=== PATIENT | female | born 1995 | race Caucasian/White ===

== ENCOUNTER 2021-05-27 17:34 | Observation (INO) | payer OTHER ==
[2021-05-27 18:19] LABS: Appearance CLEAR (CLEAR); Bilirubin NEGATIVE (NEGATIVE); Blood NEGATIVE Ery/ul (0-5); Glucose 50 mg/dL (NEGATIVE); Ketones NEGATIVE (NEGATIVE); Leukocyte Esterase NEGATIVE (NEGATIVE); Mucus SLIGHT /HPF (NEGATIVE); Nitrite NEGATIVE (NEGATIVE); Protein,Urine Dip 30 (Negative); Specific Gravity 1.024 (1.005-1.025); Urobilinogen 4 mg/dL (0-1)
[2021-05-27 18:31] VITALS: PULSE 99; O2SAT 99
[2021-05-27 18:33] LABS: Amphetamine,Urine NEGATIVE (NEGATIVE); Barbiturate,Urine NEGATIVE (NEGATIVE); Benzodiazepine,Urine NEGATIVE (NEGATIVE); Cocaine,Urine NEGATIVE (NEGATIVE); Methadone,Urine NEGATIVE (NEGATIVE); Opiate,Urine NEGATIVE (NEGATIVE); PCP,Urine NEGATIVE (NEGATIVE); THC,Urine NEGATIVE (NEGATIVE)
== END 2021-05-27 19:05 | disposition home or self-care (01) ==
LOC: OB 17:34
PROVIDERS: ADMIT Obstetrics & Gynecology; ATTEND Obstetrics & Gynecology
DX: Z34.03 Encounter for supervision of normal first pregnancy, third trimester (principal); Z3A.34 34 weeks gestation of pregnancy
CPT/HCPCS: 80307; 81001; G0378

== ENCOUNTER 2021-06-21 06:42 | Inpatient (IN) | payer OTHER ==
[2021-06-21 07:49] LABS: Absolute Neutrophil Ct (ANC) 5.64 (1.4-6.9); BASOPHIL % 0.3 % (0.0-0.4); Basophil (Absolute #) 0.02 (0-0.4); Eosinophil % 0.9 % (0.00-5.0); Eosinophil (Absolute #) 0.07 (0-0.5); Hematocrit 37.3 % (35-47); Hemoglobin 11.6 gm/dl (12.0-16.0); Lymphocyte (Absolute #) 1.68 (1.0-4.6); Mean Cell Volume 90.5 fl (78-100); Mean Corpuscular Hemoglobin 28.2 pg (26-32); Mean Corpuscular Hgb Concent. 31.1 g/dl (32-36); Mean Platelet Volume 10.8 fl (7.5-11.0); Monocyte (Absolute #) 0.58 (0.0-1.3); Monocytes % 7.3 % (0.0-12.0); Neutrophil % 70.5 % (36.0-66.0); Platelet Count 189 K/mm3 (150-450); Red Blood Count 4.12 M/mm3 (4.1-5.4); Red Cell Distribution Width 14.9 % (11.5-14.0)
[2021-06-21 07:53] LABS: ALBUMIN 3.5 g/dL (3.5-5.0); ALKALINE PHOSPHATASE 203 U/L (38-126); ANION GAP 10.8 MEQ/L (5-15); BLOOD UREA NITROGEN 8 mg/dL (7-17); CHLORIDE 106 mmol/L (98-107); Carbon Dioxide 23 mmol/L (22-30); Creatinine 1 0.57 mg/dL (0.52-1.04); EST GLOMERULAR FILTRATION RATE > 60.0 ML/MIN; Glucose 95 mg/dL (74-106); Potassium 4.1 mmol/L (3.5-5.1); SGOT/AST 46 U/L (14-36); SGPT/ALT 44 U/L (0-35); SODIUM 135 mmol/L (137-145); Total Protein 6.6 g/dL (6.3-8.2)
[2021-06-21 07:54] LABS: Appearance SLIGHTLY CLOUDY (CLEAR); Bacteria RARE /HPF (NEGATIVE); Bilirubin NEGATIVE (NEGATIVE); Blood NEGATIVE Ery/ul (0-5); Glucose NEGATIVE (NEGATIVE); Ketones NEGATIVE (NEGATIVE); Leukocyte Esterase NEGATIVE (NEGATIVE); Mucus SLIGHT /HPF (NEGATIVE); Nitrite NEGATIVE (NEGATIVE); Protein,Urine Dip 30 (Negative); Urobilinogen 4 mg/dL (0-1)
[2021-06-21 08:11] LABS: INFLUENZA A NEGATIVE (NEGATIVE); INFLUENZA B NEGATIVE (NEGATIVE); RESPIRATORY SYNCTIAL VIRUS NEGATIVE (Negative)
[2021-06-21] MEDS ORDERED: Sodium Chloride 0.9% 1000 ML 1,000 ML ONE (08:15)
[2021-06-21 08:19] LABS: SARS-CoV-2 Xpert Express POSITIVE (NEGATIVE)
[2021-06-21 08:26] LABS: BAND 5 % (0.0-2.0); Lymphocytes 18 % (24-44); Monocyte 7 % (0.0-12.0); Neutrophils 70 % (36.0-66.0); Nucleated Red Blood Cell 1 %; Total Cells Counted 100
[2021-06-21 08:27] LABS: Platelet Estimate NORMAL (NORMAL)
[2021-06-21 08:28] LABS: ANISOCYTOSIS 1+; Polychromasia 1+
--- NOTE | 2021-06-21 09:42 | ERPHSYRPT ---
- History of Present Illness Time Seen by Provider: 06/21/21 08:32 Source: patient Exam Limitations: no limitations Patient Subjective Stated Complaint: Pt states that she began itching on Thursday on the bottoms of her feet but it has progressed to the rest of her body, pt is 38 wks and 2 days gestation Triage Nursing Assessment: Pt was brought to the ER by her boyfriend (covid positive), tachycardic, denies pain, pulses normal, no difficulties with , doesn't appear to be in any distress Physician History: 26 years old 1 para 0 at around 38 weeks gestation presented in the ER with 3 days history of itching all over especially on the hands and feet with progressive worsening without yellowish discoloration of eyes/skin. Patient denies any abdominal cramping, although does report passing a mucous plug last night but no leaking of fluid. No fever chills reported. Does have positive contact with known COVID-19 and has minimal cough but denies any fever chills or shortness of breath. Patient called her OB and was advised to be reported in the ER and had baseline labs including bile acid checked. Timing/Duration: day(s), gradual onset, worse Severity of Pain-Max: none Severity of Pain-Current: none Sexual intercourse history: non-contributory Modifying Factors: Improves With: nothing Associated Symptoms: denies symptoms Allergies/Adverse Reactions: sulfamethoxazole [From Bactrim] Allergy (Verified 06/21/21 07:08) trimethoprim [From Bactrim] Allergy (Verified 06/21/21 07:08) Home Medications: Pnv No.95/Ferrous Fum/Folic AC [ Caplet] 1 each PO DAILY 06/21/21 [Hist ory] Travel Risk - International Travel Have you traveled outside of the country in past 3 weeks: No - Coronavirus Screening Are you exhibiting any of the following symptoms?: No Close contact with a COVID-19 positive Pt in past 14-21 Days: Yes - Vaccine Status Have you recieved a Covid-19 vaccination: No - Review of Systems Constitutional: No Symptoms Eyes: No Symptoms Ears, Nose, & Throat: No Symptoms Respiratory: Cough Cardiac: No Symptoms Abdominal/Gastrointestinal: No Symptoms Genitourinary Symptoms: No Symptoms Musculoskeletal: No Symptoms Skin: Pruritis Neurological: No Symptoms Psychological: No Symptoms Endocrine: No Symptoms Hematologic/Lymphatic: No Symptoms Immunological/Allergic: No Symptoms - Past Medical History Pertinent Past Medical History: No - Past Surgical History Past Surgical History: No - Social History Smoking Status: Never smoker Exposure to second hand smoke: No Drug Use: none Patient Lives Alone: No - Female History Hx Now: Yes Expected Date of Delivery: 07/03/21 - Nursing Vital Signs Nursing Vital Signs: Initial Vital Signs Temperature 97.6 F 06/21/21 06:59 Pulse Rate 126 H 06/21/21 06:59 Blood Pressure 113/83 06/21/21 06:59 O2 Sat by Pulse Oximetry 100 06/21/21 06:59 Pain Scale Pain Intensity 0 - Physical Exam General Appearance: no apparent distress, alert Eye Exam: PERRL/EOMI Ears, Nose, Throat Exam: normal ENT inspection, TMs normal, pharynx normal Neck Exam: normal inspection, non-tender, supple, full range of motion Respiratory Exam: normal breath sounds, lungs clear Cardiovascular Exam: normal heart sounds, tachycardia Gastrointestinal/Abdomen Exam: soft, normal bowel sounds, other (Gravid uterus), No tenderness Back Exam: normal inspection, normal range of motion Extremity Exam: normal inspection, normal range of motion Neurologic Exam: alert, oriented x 3, cooperative, population health coach II-XII nml as tested Skin Exam: normal color SpO2 Interpretation: normal SpO2: 100 O2 Delivery: Room Air Ordered Tests: Active Orders 24 hr Category Date Time Status CBC W DIFF Stat Lab 06/21/21 07:35 Completed CMP Stat Lab 06/21/21 07:35 Completed Manual Differential NC Stat Lab 06/21/21 07:35 Completed UA W/RFX UR CULTURE Stat Lab 06/21/21 07:35 Completed Medication Summary Discontinued Medications Generic Name Dose Route Start Last Admin Trade Name Adriana PRN Reason Stop Dose Admin Sodium Chloride Confirm 06/21/21 08:15 Sodium Chloride 0.9% 1000 Ml Administered 06/21/21 08:16 Dose 1,000 mls @ [facility] Lab/Rad Data: Laboratory Result Diagrams 06/21/21 07:35 06/21/21 07:35 Laboratory Results 06/21/21 06/21/21 06/21/21 Range/Units 07:35 07:35 07:35 WBC 8.0 (4.0-10.5) K/mm3 RBC 4.12 (4.1-5.4) M/mm3 Hgb 11.6 L (12.0-16.0) gm/dl Hct 37.3 (35-47) % MCV 90.5 (78-100) fl MCH 28.2 (26-32) pg MCHC 31.1 L (32-36) g/dl RDW 14.9 H (11.5-14.0) % Plt Count 189 (150-450) K/mm3 MPV 10.8 (7.5-11.0) fl Gran % 70.5 H (36.0-66.0) % Eos # (Auto) 0.07 (0-0.5) Absolute Lymphs (auto) 1.68 (1.0-4.6) Absolute Monos (auto) 0.58 (0.0-1.3) Lymphocytes % 21.0 L (24.0-44.0) % Monocytes % 7.3 (0.0-12.0) % Eosinophils % 0.9 (0.00-5.0) % Basophils % 0.3 (0.0-0.4) % Absolute Granulocytes 5.64 (1.4-6.9) Segmented Neutrophils 70 H (36.0-66.0) % Band Neutrophils 5 H (0.0-2.0) % Lymphocytes (Manual) 18 L (24-44) % Monocytes (Manual) 7 (0.0-12.0) % Basophils # 0.02 (0-0.4) Nucleated RBCs 1 % Platelet Estimate NORMAL (NORMAL) RBC Morphology ABNORMAL Polychromasia 1+ Anisocytosis 1+ Sodium 135 L (137-145) mmol/L Potassium 4.1 (3.5-5.1) mmol/L Chloride 106 (98-107) mmol/L Carbon Dioxide 23 (22-30) mmol/L Anion Gap 10.8 (5-15) MEQ/L BUN 8 (7-17) mg/dL Creatinine 0.57 (0.52-1.04) mg/dL Estimated GFR > 60.0 ML/MIN Glucose 95 (74-106) mg/dL Calcium 9.0 (8.4-10.2) mg/dL Total Bilirubin 0.70 (0.2-1.3) mg/dL AST 46 H (14-36) U/L ALT 44 H (0-35) U/L Alkaline Phosphatase 203 H (38-126) U/L Serum Total Protein 6.6 (6.3-8.2) g/dL Albumin 3.5 (3.5-5.0) g/dL Urine Color MARNIE (YELLOW) Urine Appearance SLIGHTLY CLOUDY (CLEAR) Urine pH 5.0 (5-6) Ur Specific [place] 1.020 (1.005-1.025) Urine Protein 30 (Negative) Urine Ketones NEGATIVE (NEGATIVE) Urine Blood NEGATIVE (0-5) Matteo/ul Urine Nitrite NEGATIVE (NEGATIVE) Urine Bilirubin NEGATIVE (NEGATIVE) Urine Urobilinogen 4 (0-1) mg/dL Ur Leukocyte Esterase NEGATIVE (NEGATIVE) Urine WBC (Auto) 3-5 (0-5) /HPF Urine RBC (Auto) NONE (0-2) /HPF U Epithel Cells (Auto) NONE (FEW) /HPF Urine Bacteria (Auto) RARE (NEGATIVE) /HPF Urine Mucus (Auto) SLIGHT (NEGATIVE) /HPF Urine Culture Reflexed NO (NO) Urine Glucose NEGATIVE (NEGATIVE) mg/dL Influenza Type A Ag (NEGATIVE) Influenza Type B Ag (NEGATIVE) RSV (PCR) (Negative) SARS-CoV-2 (PCR) (NEGATIVE) 06/21/21 Range/Units 07:32 WBC (4.0-10.5) K/mm3 RBC (4.1-5.4) M/mm3 Hgb (12.0-16.0) gm/dl Hct (35-47) % MCV (78-100) fl MCH (26-32) pg MCHC (32-36) g/dl RDW (11.5-14.0) % Plt Count (150-450) K/mm3 MPV (7.5-11.0) fl Gran % (36.0-66.0) % Eos # (Auto) (0-0.5) Absolute Lymphs (auto) (1.0-4.6) Absolute Monos (auto) (0.0-1.3) Lymphocytes % (24.0-44.0) % Monocytes % (0.0-12.0) % Eosinophils % (0.00-5.0) % Basophils % (0.0-0.4) % Absolute Granulocytes (1.4-6.9) Segmented Neutrophils (36.0-66.0) % Band Neutrophils (0.0-2.0) % Lymphocytes (Manual) (24-44) % Monocytes (Manual) (0.0-12.0) % Basophils # (0-0.4) Nucleated RBCs % Platelet Estimate (NORMAL) RBC Morphology Polychromasia Anisocytosis Sodium (137-145) mmol/L Potassium (3.5-5.1) mmol/L Chloride (98-107) mmol/L Carbon Dioxide (22-30) mmol/L Anion Gap (5-15) MEQ/L BUN (7-17) mg/dL Creatinine (0.52-1.04) mg/dL Estimated GFR ML/MIN Glucose (74-106) mg/dL Calcium (8.4-10.2) mg/dL Total Bilirubin (0.2-1.3) mg/dL AST (14-36) U/L ALT (0-35) U/L Alkaline Phosphatase (38-126) U/L Serum Total Protein (6.3-8.2) g/dL Albumin (3.5-5.0) g/dL Urine Color (YELLOW) Urine Appearance (CLEAR) Urine pH (5-6) Ur Specific [place] (1.005-1.025) Urine Protein (Negative) Urine Ketones (NEGATIVE) Urine Blood (0-5) Matteo/ul Urine Nitrite (NEGATIVE) Urine Bilirubin (NEGATIVE) Urine Urobilinogen (0-1) mg/dL Ur Leukocyte Esterase (NEGATIVE) Urine WBC (Auto) (0-5) /HPF Urine RBC (Auto) (0-2) /HPF U Epithel Cells (Auto) (FEW) /HPF Urine Bacteria (Auto) (NEGATIVE) /HPF Urine Mucus (Auto) (NEGATIVE) /HPF Urine Culture Reflexed (NO) Urine Glucose (NEGATIVE) mg/dL Influenza Type A Ag NEGATIVE (NEGATIVE) Influenza Type B Ag NEGATIVE (NEGATIVE) RSV (PCR) NEGATIVE (Negative) SARS-CoV-2 (PCR) POSITIVE A (NEGATIVE) - Progress Progress: re-examined Air Movement: good Progress Note: 06/21/21 09:40 26 years old is evaluated for increased itching for the last few days with possibility of cholestasis of . Baseline labs are obtained. Given fluids. OB nurses have evaluated and have done NST, Dr. Sheppard has seen patient, will be induced today. Patient Covid turned out to be positive and waiting for the Covid room to be cleaned betaken to OB for induction. Patient is otherwise asymptomatic except for minimal cough and does not need any active intervention for tach. Blood Culture(s) Obtained: No Antibiotics given: No Discussed with : Viral Will see patient in: hospital (observation) Counseled pt/family regarding: lab results, diagnosis - Departure Departure Disposition: Observation Clinical Impression: Cholestasis during in third trimester, COVID-19 Condition: Stable Critical Care Time: No Referrals: DOCTOR,NO FAMILY [Primary Care Provider] - Follow up/PCP as directed
[2021-06-21] MEDS ORDERED: XYLOCAINE 1% HCL 20 ML MDV IJ PRN (15:08)
[2021-06-21 15:56] LABS: Hematocrit 33.5 % (35-47); Hemoglobin 10.5 gm/dl (12.0-16.0); Mean Cell Volume 90.1 fl (78-100); Mean Corpuscular Hemoglobin 28.2 pg (26-32); Mean Corpuscular Hgb Concent. 31.3 g/dl (32-36); Mean Platelet Volume 10.7 fl (7.5-11.0); Platelet Count 198 K/mm3 (150-450); Red Blood Count 3.72 M/mm3 (4.1-5.4); Red Cell Distribution Width 14.9 % (11.5-14.0)
[2021-06-21 16:21] LABS: BAND 19 % (0.0-2.0); Lymphocytes 4 % (24-44); Neutrophils 77 % (36.0-66.0); Total Cells Counted 100
[2021-06-21 16:22] LABS: Platelet Estimate NORMAL (NORMAL)
[2021-06-21] MEDS ORDERED: TYLENOL EXTRA STRENGTH 500 MG PO PRN (16:48)
[2021-06-21] MEDS ORDERED: Zofran 4 MG/2 ML VIAL IV PRN (16:48)
[2021-06-21 16:59] LABS: ABO TYPING A; Antibody Screen NEGATIVE (NEGATIVE); RH TYPING POSITIVE
[2021-06-21 17:47] LABS: Amphetamine,Urine NEGATIVE (NEGATIVE); Barbiturate,Urine NEGATIVE (NEGATIVE); Benzodiazepine,Urine NEGATIVE (NEGATIVE); Cocaine,Urine NEGATIVE (NEGATIVE); Methadone,Urine NEGATIVE (NEGATIVE); Opiate,Urine NEGATIVE (NEGATIVE); PCP,Urine NEGATIVE (NEGATIVE); THC,Urine NEGATIVE (NEGATIVE)
[2021-06-21] MEDS ORDERED: STADOL 2 MG IV PRN (23:38)
[2021-06-22] MEDS ORDERED: STADOL 2 MG ONE (02:52)
[2021-06-22] MEDS: Lactated Ringers 1,000 ML IV SCH ×3 (03:33→21:08)
[2021-06-22] MEDS ORDERED: STADOL 2 MG IV PRN (04:47)
[2021-06-22] MEDS ORDERED: TUCKS TP PRN (05:39)
[2021-06-22] MEDS ORDERED: LANSINOH 40 GM TOP PRN (05:39)
[2021-06-22] MEDS ORDERED: CORTISONE 1% CREAM TP PRN (05:39)
[2021-06-22] MEDS ORDERED: Dulcolax 10 MG SUPP PR PRN (05:39)
[2021-06-22] MEDS ORDERED: Dermoplast Spray TP PRN (05:39)
[2021-06-22] MEDS ORDERED: Mylicon 80MG PO PRN (05:39)
[2021-06-22] MEDS ORDERED: Anucort-HC SUPPOSITORY PR PRN (05:39)
[2021-06-22] MEDS ORDERED: Ephedrine Sulfate 50 MG/ML IV PRN (06:40)
--- NOTE | 2021-06-22 08:10 | PCM.HP ---
History of Present Illness - Chief Complaint Chief Complaint: IUP History of Present Illness: is a 26 year old female. 26yo iup 38 2/7 wks gestation with current hx of testing positive for covid and with co recent onset of extreme itching on palms and feet since this past thursday. denies uterine contx and states good movement. pts partner recently tested positive for covid however pt is asymptomatic at this time. pt had not been vaccinated covid prior to and during as this was advised and was discussed. pmhx; none meds; prenatals allergy; nkda socia; no smoking labs; positive covid cmp; elevated ast and alt bile acid pending a/p iup at 38 2/7 wks gestation with covid and suspected intrahepatic cholestasis of will admit for induction with cytotec at this time covid precaution Medications & Allergies Home Medications: Home Medication List Pnv No.95/Ferrous Fum/Folic AC [ Caplet] 1 each PO DAILY 06/21/21 [History Confirmed 06/21/21] Allergies/Adverse Reactions: Allergies Allergy/AdvReac Type Severity Reaction Status Date / Time sulfamethoxazole Allergy Mild Nausea and Verified 06/21/21 21:55 [From Bactrim] Vomiting trimethoprim [From Bactrim] Allergy Mild Nausea and Verified 06/21/21 21:55 Vomiting - Past Medical History Past Medical History: No Neurological History: No Pertinent History ENT History: No Pertinent History Cardiac History: No Pertinent History CARDIAC HISTORY: No Pertinent History Respiratory History: Asthma Endocrine Medical History: No Pertinent History Musculoskelatal History: No Pertinent History GI Medical History: No Pertinent History History: No Pertinent History Pyscho-Social History: No Pertinent History Reproductive Disorders: No Pertinent History - Female History Are you now?: Yes Expected Date of Delivery: 07/03/21 - Past Surgical History Past Surgical History: No (none) Neuro Surgical History: No Pertinent History Cardiac History: No Pertinent History Respiratory Surgery: No Pertinent History GI Surgical History: No Pertinent History Genitourinary Surgical Hx: No Pertinent History Musculskeletal Surgical Hx: No Pertinent History Female Surgical History: No Pertinent History - Social History Smoking Status: Never smoker Exposure to second hand smoke: No Alcohol: None Drug Use: none - Physical Exam Vital Signs: Vital Signs - 24 hr Temp Pulse Resp BP Pulse Ox 06/22/21 04:00 98.4 F 92 H 16 134/77 06/22/21 00:00 98.6 F 92 H 16 113/55 06/21/21 20:00 98.4 F 96 H 16 119/69 06/21/21 17:54 98.1 F 100 H 18 129/76 98 06/21/21 17:30 98.3 F 98 H 20 106/69 06/21/21 10:44 95 H 109/76 100 06/21/21 09:42 100 06/21/21 09:03 94 H 102/66 100 06/21/21 08:57 94 H 102/66 100 General Appearance: no apparent distress Neurologic Exam: oriented x 3 Cardiovascular Exam: regular rate/rhythm Gastrointestinal/Abdomen Exam: soft, other (gravid) Pelvic Exam: other (pelvic; cervix closed) Results - Labs Lab/Micro Results: Lab Results-Last 24 Hours 06/21/21 06/21/21 06/21/21 Range/Units 07:32 07:35 07:35 WBC 8.0 (4.0-10.5) K/mm3 RBC 4.12 (4.1-5.4) M/mm3 Hgb 11.6 L (12.0-16.0) gm/dl Hct 37.3 (35-47) % MCV 90.5 (78-100) fl MCH 28.2 (26-32) pg MCHC 31.1 L (32-36) g/dl RDW 14.9 H (11.5-14.0) % Plt Count 189 (150-450) K/mm3 MPV 10.8 (7.5-11.0) fl Gran % 70.5 H (36.0-66.0) % Eos # (Auto) 0.07 (0-0.5) Absolute Lymphs (auto) 1.68 (1.0-4.6) Absolute Monos (auto) 0.58 (0.0-1.3) Lymphocytes % 21.0 L (24.0-44.0) % Monocytes % 7.3 (0.0-12.0) % Eosinophils % 0.9 (0.00-5.0) % Basophils % 0.3 (0.0-0.4) % Absolute Granulocytes 5.64 (1.4-6.9) Segmented Neutrophils 70 H (36.0-66.0) % Band Neutrophils 5 H (0.0-2.0) % Lymphocytes (Manual) 18 L (24-44) % Monocytes (Manual) 7 (0.0-12.0) % Basophils # 0.02 (0-0.4) Nucleated RBCs 1 % Platelet Estimate NORMAL (NORMAL) RBC Morphology ABNORMAL Polychromasia 1+ Anisocytosis 1+ Urine Opiates Level NEGATIVE (NEGATIVE) Ur Methadone NEGATIVE (NEGATIVE) Urine Barbiturates NEGATIVE (NEGATIVE) Ur Phencyclidine (PCP) NEGATIVE (NEGATIVE) Urine Amphetamine NEGATIVE (NEGATIVE) U Benzodiazepine Level NEGATIVE (NEGATIVE) Urine Cocaine NEGATIVE (NEGATIVE) Urine Marijuana (THC) NEGATIVE (NEGATIVE) Influenza Type A Ag NEGATIVE (NEGATIVE) Influenza Type B Ag NEGATIVE (NEGATIVE) RSV (PCR) NEGATIVE (Negative) SARS-CoV-2 (PCR) POSITIVE A (NEGATIVE) ABO Group Rh Factor Antibody Screen (NEGATIVE) 06/21/21 06/21/21 Range/Units 15:08 15:45 WBC 8.0 (4.0-10.5) K/mm3 RBC 3.72 L (4.1-5.4) M/mm3 Hgb 10.5 L (12.0-16.0) gm/dl Hct 33.5 L (35-47) % MCV 90.1 (78-100) fl MCH 28.2 (26-32) pg MCHC 31.3 L (32-36) g/dl RDW 14.9 H (11.5-14.0) % Plt Count 198 (150-450) K/mm3 MPV 10.7 (7.5-11.0) fl Gran % (36.0-66.0) % Eos # (Auto) (0-0.5) Absolute Lymphs (auto) (1.0-4.6) Absolute Monos (auto) (0.0-1.3) Lymphocytes % (24.0-44.0) % Monocytes % (0.0-12.0) % Eosinophils % (0.00-5.0) % Basophils % (0.0-0.4) % Absolute Granulocytes (1.4-6.9) Segmented Neutrophils 77 H (36.0-66.0) % Band Neutrophils 19 H (0.0-2.0) % Lymphocytes (Manual) 4 L (24-44) % Monocytes (Manual) (0.0-12.0) % Basophils # (0-0.4) Nucleated RBCs % Platelet Estimate NORMAL (NORMAL) RBC Morphology NORMAL Polychromasia Anisocytosis Urine Opiates Level (NEGATIVE) Ur Methadone (NEGATIVE) Urine Barbiturates (NEGATIVE) Ur Phencyclidine (PCP) (NEGATIVE) Urine Amphetamine (NEGATIVE) U Benzodiazepine Level (NEGATIVE) Urine Cocaine (NEGATIVE) Urine Marijuana (THC) (NEGATIVE) Influenza Type A Ag (NEGATIVE) Influenza Type B Ag (NEGATIVE) RSV (PCR) (Negative) SARS-CoV-2 (PCR) (NEGATIVE) ABO Group A Rh Factor POSITIVE Antibody Screen NEGATIVE (NEGATIVE) Assessment/Plan (1) COVID-19 affecting in third trimester Current Visit: Yes Status: Acute Code(s): O98.513 - OTHER VIRAL DISEASES COMPLICATING , THIRD TRIMESTER; U07.1 - COVID-19 (2) Intrahepatic cholestasis of in third trimester, antepartum Current Visit: Yes Status: Acute Code(s): O26.613 - LIVER AND BILIARY TRACT DISORD IN , THIRD TRIMESTER; K83.1 - OBSTRUCTION OF BILE DUCT
--- NOTE | 2021-06-22 08:20 | PCM.BN ---
Brief Admission Note - Admission Note Brief Admisson Note: Patient admitted @ 06/21/21 15:02 to MED SURG. Medication List reviewed and reconciled. pt is 26 yo iup 38 2/7 wks with no recent co of extreme itching on palms of hands and feet for the past 5 days worsening and recent exposure to covid and now testing positive for covid today. denies coughing or sypmtoms of covid at this time. pt had labs drawn indicating likely intrahepatic cholestasis of and at this time was determined to proceed with i nduction. denies any other complaints. pmhx; none psurghx; none nkda social; none a/p iup at 38 2/7 wks gestation with covid and likely intrahepatic cholestasis of will admit at this time for induction with cytotec
[2021-06-22] MEDS: PITOCIN 30 UNITS/ LR 500 ML 30 UNITS/500 ML PLAST..BAG IV SCH ×2 (08:54→21:08)
[2021-06-22] MEDS ORDERED: FENTANYL 2 MCG-BUPIV 0.125%-NS 250 ML Epidur 250 ML EPIDURAL SCH (09:00)
[2021-06-22] MEDS ORDERED: Lactated Ringers 1,000 ML IV ONE (09:00)
[2021-06-22] MEDS ORDERED: Colace 100 MG PO SCH (10:00)
[2021-06-22] MEDS: MOTRIN 400 MG PO PRN (21:52)
[2021-06-23] MEDS: MOTRIN 400 MG PO PRN ×2 (03:52→12:38)
[2021-06-23 05:01] LABS: Absolute Neutrophil Ct (ANC) 11.05 (1.4-6.9); BASOPHIL % 0.1 % (0.0-0.4); Basophil (Absolute #) 0.02 (0-0.4); Eosinophil % 0.3 % (0.00-5.0); Eosinophil (Absolute #) 0.04 (0-0.5); Hemoglobin 11.2 gm/dl (12.0-16.0); Lymphocyte (Absolute #) 1.95 (1.0-4.6); Lymphocytes % 13.7 % (24.0-44.0); Mean Corpuscular Hgb Concent. 31.1 g/dl (32-36); Mean Platelet Volume 11.1 fl (7.5-11.0); Monocyte (Absolute #) 1.14 (0.0-1.3); Neutrophil % 77.9 % (36.0-66.0); Platelet Count 219 K/mm3 (150-450); Red Cell Distribution Width 14.8 % (11.5-14.0); White Blood Count 14.2 K/mm3 (4.0-10.5)
[2021-06-23] MEDS ORDERED: Colace 100 MG PO SCH (10:00)
[2021-06-23] MEDS ORDERED: FERREX 150 PO SCH (10:00)
--- NOTE | 2021-06-23 11:09 | PCM.NOTE ---
Date and Time: 06/23/21 1107 Subjective Assessment: ppd 1 pt resting in bed and doing well tolerating diet and ambulating. denies cough or uri symptoms especially being tested positive for covid vss afebrile abd; soft uterus; firm lochia; mild a/p sp ppd 1 covid and cholestasis of pt stable for discharge today will dc home today and fu in office in 3 wks OBJECTIVE DATA Vital Signs: Vital Signs - 24 hr Temp Pulse Resp BP BP Pulse Ox 06/23/21 08:35 97.2 F 93 H 16 98/61 100 06/23/21 04:00 97.5 F 91 H 17 103/63 98 06/23/21 00:00 98.7 F 84 18 112/68 99 06/22/21 20:00 98.9 F 85 17 116/64 99 06/22/21 16:03 87 18 119/74 06/22/21 16:00 87 18 119/74 06/22/21 15:15 98.2 F 115 H 16 115/66 06/22/21 14:15 90 16 114/68 06/22/21 14:00 90 18 107/72 06/22/21 13:45 93 H 18 114/76 06/22/21 13:30 74 18 117/75 06/22/21 12:45 91 H 16 128/76 06/22/21 12:30 77 22 06/22/21 12:15 77 16 108/61 06/22/21 11:45 86 18 122/78 06/22/21 11:30 81 18 102/66 06/22/21 11:15 87 18 96/59 Pain Assessment - Last Documented Pain Intensity [Abdomen] 3 Pain Intensity 0 Pain Scale Used 0-10 Pain Scale Intake and Output: Intake & Output 06/20/21 06/21/21 06/22/21 06/23/21 11:59 11:59 11:59 11:59 Intake Total 772 1500 Output Total 600 500 Balance 172 1000 Weight 76 kg 77.564 kg Lab Results: Lab Results-Last 24 Hours 06/23/21 Range/Units 04:20 WBC 14.2 H (4.0-10.5) K/mm3 RBC 4.00 L (4.1-5.4) M/mm3 Hgb 11.2 L (12.0-16.0) gm/dl Hct 36.0 (35-47) % MCV 90.0 (78-100) fl MCH 28.0 (26-32) pg MCHC 31.1 L (32-36) g/dl RDW 14.8 H (11.5-14.0) % Plt Count 219 (150-450) K/mm3 MPV 11.1 H (7.5-11.0) fl Gran % 77.9 H (36.0-66.0) % Eos # (Auto) 0.04 (0-0.5) Absolute Lymphs (auto) 1.95 (1.0-4.6) Absolute Monos (auto) 1.14 (0.0-1.3) Lymphocytes % 13.7 L (24.0-44.0) % Monocytes % 8.0 (0.0-12.0) % Eosinophils % 0.3 (0.00-5.0) % Basophils % 0.1 (0.0-0.4) % Absolute Granulocytes 11.05 H (1.4-6.9) Basophils # 0.02 (0-0.4) Assessment/Plan (1) COVID-19 affecting in third trimester Current Visit: Yes Status: Acute Code(s): O98.513 - OTHER VIRAL DISEASES COMPLICATING , THIRD TRIMESTER; U07.1 - COVID-19 (2) Intrahepatic cholestasis of in third trimester, antepartum Current Visit: Yes Status: Acute Code(s): O26.613 - LIVER AND BILIARY TRACT DISORD IN , THIRD TRIMESTER; K83.1 - OBSTRUCTION OF BILE DUCT (3) Vaginal delivery Current Visit: Yes Status: Acute Code(s): O80 - ENCOUNTER FOR FULL-TERM UNCOMPLICATED DELIVERY
--- NOTE | 2021-06-23 11:15 | PCM.DS ---
Discharge Summary Date of Admission: 06/21/21 15:02 Admitting Physician: LORRAINE NUNN DO Consults: Consults on Case 06/22/21 06:41 Notify Anesthesia Provider MARLONN 06/22/21 16:05 Navigation ONCE Primary Care Provider: Unknown Provider Allergies Allergies sulfamethoxazole [From Bactrim] Allergy (Mild, Verified 06/21/21 21:55) Nausea and Vomiting trimethoprim [From Bactrim] Allergy (Mild, Verified 06/21/21 21:55) Nausea and Vomiting Hospital Summary - Hospital Course Hospital Course: pt was admitted on june 21 for induction at 38 2/7 wks gestation secondary to suspected intrahepatic cholestasis of pregancy secondary to being symptomatic and with elevated liver enzymes. pt also having been exposed to covid from partner and also tested positive. pt was induced with vaginal cytotec and received two doses of cytotec with subsequent use of pitocin and delivered live baby boy on jun 22 early afternoon without complication. during pospartum period pt did very well and has a stable hgb level of 11 and now stable for discharge as this is what she is requesting. all questions answered to her sati sfaction and at this time pt will fu in office in 3 wks for care. pt was advised to take ibuprofen for pain management. - Vitals & Intake/Output Vital Signs: Vital Signs Temperature 97.2 F 06/23/21 08:35 Pulse Rate 93 H 06/23/21 08:35 Respiratory Rate 16 06/23/21 08:35 Blood Pressure 98/61 06/23/21 08:35 O2 Sat by Pulse Oximetry 100 06/23/21 08:35 Intake & Output: Intake & Output 06/20/21 06/21/21 06/22/21 06/23/21 11:59 11:59 11:59 11:59 Intake Total 772 1500 Output Total 600 500 Balance 172 1000 Weight 76 kg 77.564 kg - Lab Result Diagrams: 06/23/21 04:20 06/21/21 07:35 Lab Results-Last 24 Hrs: Lab Results-Last 24 Hours 06/23/21 Range/Units 04:20 WBC 14.2 H (4.0-10.5) K/mm3 RBC 4.00 L (4.1-5.4) M/mm3 Hgb 11.2 L (12.0-16.0) gm/dl Hct 36.0 (35-47) % MCV 90.0 (78-100) fl MCH 28.0 (26-32) pg MCHC 31.1 L (32-36) g/dl RDW 14.8 H (11.5-14.0) % Plt Count 219 (150-450) K/mm3 MPV 11.1 H (7.5-11.0) fl Gran % 77.9 H (36.0-66.0) % Eos # (Auto) 0.04 (0-0.5) Absolute Lymphs (auto) 1.95 (1.0-4.6) Absolute Monos (auto) 1.14 (0.0-1.3) Lymphocytes % 13.7 L (24.0-44.0) % Monocytes % 8.0 (0.0-12.0) % Eosinophils % 0.3 (0.00-5.0) % Basophils % 0.1 (0.0-0.4) % Absolute Granulocytes 11.05 H (1.4-6.9) Basophils # 0.02 (0-0.4) Final Diagnosis/Problem List - Final Discharge Diagnosis/Problem (1) COVID-19 affecting in third trimester Current Visit: Yes Status: Acute Code(s): O98.513 - OTHER VIRAL DISEASES COMPLICATING , THIRD TRIMESTER; U07.1 - COVID-19 (2) Intrahepatic cholestasis of in third trimester, antepartum Current Visit: Yes Status: Acute Code(s): O26.613 - LIVER AND BILIARY TRACT DISORD IN , THIRD TRIMESTER; K83.1 - OBSTRUCTION OF BILE DUCT (3) Vaginal delivery Current Visit: Yes Status: Acute Code(s): O80 - ENCOUNTER FOR FULL-TERM UNCOMPLICATED DELIVERY - Discharge Disposition: Home, Self-Care Condition: Stable Prescriptions: No Action Pnv No.95/Ferrous Fum/Folic AC [ Caplet] 1 each PO DAILY Instructions: Depression, Vaginal Delivery, Breast Care for the Woman, , Common Problems, The Importance of Your Baby, How to Express, Store, and Handle Breast Milk, What to Watch for After You Have a Baby Follow up with: Provider,Unknown [Primary Care Provider] - LORRAINE NUNN DO [ACTIVE STAFF] - 3 weeks (should fu in office in 3 wks should call office for any issues that may arise prior to appt)
[2021-06-23 16:43] VITALS: BP 110/59
[2021-06-23 22:16] VITALS: PULSE 92; O2SAT 99
[2021-06-25 08:29] LABS: HBsAg Screen Negative (Negative)
== END 2021-06-23 20:15 | disposition home or self-care (01) | DRG 805 ==
LOC: ED 06:42 → UNDOADMOB 14:10 → MED SURG 14:10 → ED 14:11 → INTOOBSV 15:02 → OBSVTOIN 15:02 → MED SURG 15:02 → UNDOADMOB 15:02 → UNDODISIN 06-23 20:15
PROVIDERS: ADMIT Obstetrics & Gynecology; ATTEND Obstetrics & Gynecology
PROC: 3E033VJ Introduction of Other Hormone into Peripheral Vein, Percutaneous Approach (ICD-10-PCS; principal; 2021-06-22)
PROC: 10E0XZZ Delivery of Products of Conception, External Approach (ICD-10-PCS; 2021-06-22)
PROC: 0HQ9XZZ Repair Perineum Skin, External Approach (ICD-10-PCS; 2021-06-22)
DX: O98.52 Other viral diseases complicating childbirth (principal); U07.1 COVID-19; Z37.0 Single live birth; K83.1 Obstruction of bile duct; O26.62 Liver and biliary tract disorders in childbirth; Z3A.38 38 weeks gestation of pregnancy; Z20.828 Contact with and (suspected) exposure to other viral communicable diseases
CPT/HCPCS: 0241U; 36415; 80053; 80307; 81001; 82239; 85025; 86850; 86900; 86901; 87086; 87340; 99283; G0378; J0595; J2590; A9270-GY